=== PATIENT | female | born 1985 | race Caucasian/White ===

== ENCOUNTER 2016-08-28 16:59 | Emergency (ER) | payer SELFPAY ==
--- NOTE | 2016-08-28 18:15 | NUR ---
PATIENT LEFT WITHOUT BEING SEEN BY DR. COTA. NO FURTHER CARE PROVIDED FOR PATIENT.
== END 2016-08-28 18:15 | disposition left against medical advice (07) ==
LOC: MED 16:59
DX: M54.5 Low back pain (principal); Z53.21 Procedure and treatment not carried out due to patient leaving prior to being seen by health care provider

== ENCOUNTER 2016-08-28 18:37 | Emergency (ER) | payer MEDICAID ==
[~2016-08-28] VITALS: Ht 170.2 cm; Wt 103.9 kg
[2016-08-28 19:21] VITALS: BP 125/76
--- NOTE | 2016-08-28 20:37 | NUR ---
TO ER BED 5
[2016-08-28] MEDS ORDERED: KETOROLAC 60 MG/2 ML VIAL IM ONE (20:50)
--- NOTE | 2016-08-28 20:51 | NUR ---
31 Y/O F W/C/O LOWER BACK PAIN X 1 WK. DENIES ANY INJURIES TO BACK. NO MED HX. PT DENIES ANY N/V/D,SOB,CP AT THE MOMENT. PT STATES SHE WAS WALKING UP THE STAIRS AND HEARD HER BACK SHIFT. PT DENIES ANY FALL OR TRAUMA TO THE AREA.
--- NOTE | 2016-08-28 21:00 | NUR ---
PT LEFT FOR XRAY.
--- NOTE | 2016-08-28 21:07 | NUR ---
PT RETURN TO ER FROM XRAY
[2016-08-28 21:44] VITALS: BP 122/72
--- NOTE | 2016-08-28 21:45 | NUR ---
Patient discharged with v/s stable. Written and verbal after care instructions given and explained. Patient alert, oriented and verbalized understanding of instructions. Ambulatory with steady gait. All questions addressed prior to discharge. ID band removed. Patient advised to follow up with PMD. Rx of TRAMADOL 50MG, FLEXERIL 5MG, MOTRIN 800MG given. Patient educated on indication of medication including possible reaction and side effects. Opportunity to ask questions provided and answered.
== END 2016-08-28 21:44 | disposition home or self-care (01) ==
LOC: MED 18:37
DX: M54.5 Low back pain (principal); R03.0 Elevated blood-pressure reading, without diagnosis of hypertension; Z88.0 Allergy status to penicillin
CPT/HCPCS: 72100; 81025; 96372; 99284; J1885

== ENCOUNTER 2018-03-08 11:56 | Emergency (ER) | payer MEDICAID ==
[~2018-03-08] VITALS: Ht 167.6 cm; Wt 103.0 kg
[2018-03-08 12:35] VITALS: BP 157/87
[2018-03-08] MEDS ORDERED: ALBUTEROL SULFATE/IPRATROPIU 3 ML SOL IH ONE ×3 (12:40→14:33)
--- NOTE | 2018-03-08 12:40 | NUR ---
PT AMBULATED TO ER BED 08
--- NOTE | 2018-03-08 12:47 | NUR ---
C/O FATIGUE SOB WITH HACKING COUGH, NASAL/CHEST CONGESTION X 2 WKS OVER THE COUNTER MEDICATIONS INEFFECTIVE PER PT--NYQUIL HX--ASTHMA RX---ALBUTEROL
[2018-03-08] MEDS ORDERED: ALBUTEROL SULFATE/IPRATROPIU 3 ML SOL IH STA (13:04)
--- NOTE | 2018-03-08 14:35 | NUR ---
DR. GALLEGOS ORDERED [facility]. BREATHING TREATMENT ADMINISTERED TO PATIENT. TOLERATED TREATMENT WELL, NO ADVERSE SIDE EFFECTS. NO RESPIRATORY DISTRESS NOTED AT THIS TIME. WILL CONTINUE TO MONITOR.
--- NOTE | 2018-03-08 14:40 | NUR ---
DR GALLEGOS EVALUATING AAO X 4 PT AT BEDSIDE
[2018-03-08] MEDS ORDERED: CLINDAMYCIN 600 MG/4 ML VIAL IM ONE (14:55)
[2018-03-08] MEDS ORDERED: DEXAMETHASONE 10 MG/ML VIAL IM ONE (14:55)
--- NOTE | 2018-03-08 16:11 | NUR ---
Patient discharged with v/s stable. Written and verbal after care instructions given and explained. Patient alert, oriented and verbalized understanding of instructions. Ambulatory with steady gait. All questions addressed prior to discharge. ID band removed. Patient advised to follow up with PMD. Rx of AZITHYROMYCIN/ALBUTEROL/PROMETHAZINE DM/PREDNISONE given. Patient educated on indication of medication including possible reaction and side effects. Opportunity to ask questions provided and answered.
[2018-03-08 16:12] VITALS: BP 134/88
== END 2018-03-08 16:11 | disposition home or self-care (01) ==
LOC: MED 11:56
DX: J45.901 Unspecified asthma with (acute) exacerbation (principal); Z88.0 Allergy status to penicillin
CPT/HCPCS: 71045; 94640; 96372; 99283; J1100; J3490; J7620; Q0092

== ENCOUNTER 2018-09-26 19:46 | Emergency (ER) | payer MEDICAID ==
[~2018-09-26] VITALS: Ht 167.6 cm; Wt 99.8 kg
[2018-09-26 19:52] VITALS: BP 127/82
--- NOTE | 2018-09-26 19:52 | NUR ---
TO BED # 04 AMBULATORY
--- NOTE | 2018-09-26 20:10 | NUR ---
ER-MD CAME BY BEDSIDE TO EVALUATE PT.
--- NOTE | 2018-09-26 20:10 | NUR ---
Dr. Sawant examining patient.
[2018-09-26] MEDS ORDERED: KETOROLAC 30 MG/ML VIAL IM ONE (20:15)
--- NOTE | 2018-09-26 20:27 | NUR ---
TORADOL 30 MG IM AND BENADRYL 25 MG PO GIVEN ORDERED.
[2018-09-26] MEDS ORDERED: NEOMYCIN/POLYMYXIN/BACITRACIN 0.9 GM/1 PKT TP ONE ×2 (20:40→20:51)
--- NOTE | 2018-09-26 20:40 | NUR ---
WOUND CLEANSED WITH NS, NEOSPORIN OINTMET APPLIED AND COVERED WITH STERILE 4X4'S.
--- NOTE | 2018-09-26 20:41 | NUR ---
DISCHARGED STABLE AND IMPROVED. PRESCRIPTION,VERBAL AND WRITTEN AFTERCARE INSTRUCTIONS GIVEN. VERBALIZED UNDERSTANDING.
[2018-09-26 20:45] VITALS: BP 127/82
== END 2018-09-26 20:41 | disposition home or self-care (01) ==
LOC: MED 19:46
DX: L02.415 Cutaneous abscess of right lower limb (principal); L40.9 Psoriasis, unspecified; Z88.0 Allergy status to penicillin
CPT/HCPCS: 96372; 99283; J1885; Q0163

== ENCOUNTER 2019-06-26 18:10 | Emergency (ER) | payer MEDICAID ==
[~2019-06-26] VITALS: Ht 167.6 cm; Wt 102.5 kg
[2019-06-26 18:19] VITALS: BP 161/99
--- NOTE | 2019-06-26 18:27 | NUR ---
PT C/O BUG BITES ON WRIST BILATERAL WITH BURNING AND TINGLING SENSATION RADIATING TO BOTH UPPER ARM WHILING DOING HOUSE WORK TWO HOURS AGO. PT ALSO C/O OF SOB FOR 20 MINUTES. PATIENT STATES PAIN OF 7/10 AT THIS TIME; A SMALL AREA WITH SLIGHT ERYTHEMA W/O LUMP ON THE LEFT ANTERIOR WRIST NOTICED. PT IS TACHYCARDIAC, TACHYPNEIC, AND HYPERTENSIVE UPON ASSESSMENT. PATIENT POSITIONED FOR COMFORT AND ON MONITOR; HOB ELEVATED; BEDRAILS UP X1; BED DOWN. ER MADE AWARE OF PT STATUS. Addendum: 06/26/19 at 1900 by [facility] SUNBURN ON LEFT LATERAL UPPER ARM NOTICED.
[2019-06-26] MEDS ORDERED: NACL 0.9% 1,000 ML IV ONE (18:40)
--- NOTE | 2019-06-26 19:00 | NUR ---
PT STATES SHE DRANK ONE CUP OF VALKA AROUND 2 HOURS AGO BEFORE THE BUG BITE. AND SHE ALMOST FAINTED AT THE TIME.
--- NOTE | 2019-06-26 19:11 | NUR ---
REPORT GAVE TO AURA FERNANDEZ.
--- NOTE | 2019-06-26 19:12 | NUR ---
RECEIVED REPORT FROM AURA DIAZ. ASSUMED CARE OF PT AT THIS TIME.
--- NOTE | 2019-06-26 19:55 | NUR ---
PT LAYING IN BED. HR AT 106. PT WITH NO C/O PAIN. VISIBLE CHEST RISE AND FALL NOTED. WILL CONTINUE TO MONITOR.
[2019-06-26 20:07] VITALS: BP 126/91
== END 2019-06-26 20:11 | disposition home or self-care (01) ==
LOC: MED 18:10
DX: S60.862A Insect bite (nonvenomous) of left wrist, initial encounter (principal); W57.XXXA Bitten or stung by nonvenomous insect and other nonvenomous arthropods, initial encounter; Z88.0 Allergy status to penicillin; Y93.89 Activity, other specified; Y92.89 Other specified places as the place of occurrence of the external cause; Y99.8 Other external cause status
CPT/HCPCS: 99282; J7030

== ENCOUNTER 2019-07-28 17:43 | Emergency (ER) | payer MEDICAID ==
[~2019-07-28] VITALS: Ht 167.6 cm; Wt 107.0 kg
[2019-07-28 17:58] VITALS: BP 158/115
--- NOTE | 2019-07-28 18:03 | NUR ---
AMBULATED TO BED 5
--- NOTE | 2019-07-28 18:07 | NUR ---
34/F C/O MID LUMBAR BACK PAIN AFTER LIFTING BOXES 2 DAYS AGO. STATES LOW BACK STRAIN FROM LIFTING. DENIES BOWEL/BLADDER INCONTINENCE, N/V, F/C STATES TRIED HEATING PAD AND TYLENOL TO NO RELIEF. HAS PAIN WITH ANY MOVEMENT MEDHX: DENIES
[2019-07-28 18:25] VITALS: BP 116/72
[2019-07-28] MEDS ORDERED: KETOROLAC 60 MG/2 ML VIAL IM ONE (19:10)
--- NOTE | 2019-07-28 19:16 | NUR ---
REPORT TO AURA GONZALEZ. TRANSFER OF CARE AT THIS TIME.
--- NOTE | 2019-07-28 20:28 | NUR ---
Patient discharged with v/s stable. Written and verbal after care instructions given and explained. Patient alert, oriented and verbalized understanding of instructions. Ambulatory with steady gait. All questions addressed prior to discharge. ID band removed. Patient advised to follow up with PMD. Rx of NORCO, CIPRO, MOTRIN given. Patient educated on indication of medication including possible reaction and side effects. Opportunity to ask questions provided and answered.
== END 2019-07-28 20:28 | disposition home or self-care (01) ==
LOC: MED 17:43
DX: N39.0 Urinary tract infection, site not specified (principal); F17.210 Nicotine dependence, cigarettes, uncomplicated; M54.5 Low back pain; Z88.0 Allergy status to penicillin; Z88.1 Allergy status to other antibiotic agents
CPT/HCPCS: 81002; 81025; 96372; 99283; J1885

== ENCOUNTER 2020-09-15 05:39 | Emergency (ER) | payer SELFPAY ==
[~2020-09-15] VITALS: Ht 167.6 cm; Wt 125.2 kg
[2020-09-15 05:42] VITALS: BP 138/84
--- NOTE | 2020-09-15 05:48 | NUR ---
PT TAKEN TO BED 9
--- NOTE | 2020-09-15 05:50 | NUR ---
PT. IS A 35 Y/O FEMALE THAT CAME INTO ED WITH C/O OF MEDICATION REFILL OF ALBUTEROL. PT. STATES "I'M GOOD, I JUST NEED A MEDICATION REFILL OF MY INHALER." PT. DENIES ANY PAIN AT THIS TIME. DENIES SOB. AAOX4. VSS. DENIES N/V/D; SKIN IS PINK/WARM/DRY; AAOX4 WITH EVEN AND STEADY GAIT; HR EVEN AND REGULAR; PT DENIES ANY FEVER, CP, SOB, OR COUGH AT THIS TIME; VSS; PATIENT POSITIONED FOR COMFORT; HOB ELEVATED; BEDRAILS UP X1; BED DOWN. ER MD MADE AWARE OF PT STATUS. PMH: ASTHMA ALLERGIES: PENICILLINS, AMOXICILLIN
--- NOTE | 2020-09-15 06:13 | NUR ---
PT. SITTING ON BED WITH PHONE IN HAND, VOICES NO COMPLAINTS AT THIS TIME.
[2020-09-15] MEDS ORDERED: ALBU0.0912 INH ×2 (06:27→06:51)
--- NOTE | 2020-09-15 06:30 | NUR ---
NO NURSING INTERVENTIONS NEEDED
[2020-09-15 06:52] VITALS: BP 138/84
--- NOTE | 2020-09-15 06:52 | NUR ---
Patient discharged with v/s stable. Written and verbal after care instructions given and explained. Patient alert, oriented and verbalized understanding of instructions. Ambulatory with steady gait. All questions addressed prior to discharge. ID band removed. Patient advised to follow up with PMD. Rx of ALBUTEROL SULFATE given. Patient educated on indication of medication including possible reaction and side effects. Opportunity to ask questions provided and answered.
== END 2020-09-15 06:52 | disposition home or self-care (01) ==
LOC: MED 05:39
DX: J45.909 Unspecified asthma, uncomplicated (principal); Z76.0 Encounter for issue of repeat prescription; Z88.0 Allergy status to penicillin; Z88.1 Allergy status to other antibiotic agents
CPT/HCPCS: 99281

== ENCOUNTER 2020-10-15 10:42 | Emergency (ER) | payer MEDICAID ==
[~2020-10-15] VITALS: Ht 167.6 cm; Wt 122.5 kg
[~2020-10-15 10:42] MED LIST: ALBU0.0912 INH
[2020-10-15 10:51] VITALS: BP 129/84
--- NOTE | 2020-10-15 11:00 | NUR ---
35/F presents to ED for a refill on her albuterol inhaler. Pt states we sent her prescription to a pharmacy that is closed and she is c/o having trouble breathing. Pt does not appear to be in any respiratory distress. Pt offered a breathing tx and pt refused and said she only wanted her inhaler prescription.
[2020-10-15] MEDS ORDERED: ALBU0.0912 INH (11:20)
--- NOTE | 2020-10-15 11:27 | NUR ---
Patient discharged with v/s stable. Written and verbal after care instructions given and explained. Patient alert, oriented and verbalized understanding of instructions. Ambulatory with steady gait. All questions addressed prior to discharge. ID band removed. Patient advised to follow up with PMD. Rx of Albuterol Sulfate inhaler given. Patient educated on indication of medication including possible reaction and side effects. Opportunity to ask questions provided and answered.
== END 2020-10-15 11:27 | disposition home or self-care (01) ==
LOC: MED 10:42
DX: Z76.0 Encounter for issue of repeat prescription (principal); J45.909 Unspecified asthma, uncomplicated; Z88.0 Allergy status to penicillin; Z88.1 Allergy status to other antibiotic agents; Z79.899 Other long term (current) drug therapy
CPT/HCPCS: 99281

== ENCOUNTER 2020-10-28 09:44 | Emergency (ER) | payer MEDICAID ==
[~2020-10-28] VITALS: Ht 170.2 cm; Wt 122.5 kg
[2020-10-28 10:13] VITALS: BP 136/102
--- NOTE | 2020-10-28 10:16 | NUR ---
PT SENT TO LOBBY TO WAIT FOR AVAILABLE BED OR MSE.
[2020-10-28] MEDS ORDERED: KETOROLAC 30 MG/ML VIAL IM ONE (11:00)
[2020-10-28] MEDS ORDERED: HYDROcodone/APAP 5/325 MG 1 TAB TAB PO ONE (11:00)
[2020-10-28] MEDS ORDERED: METH-1681 PO (11:07)
[2020-10-28] MEDS ORDERED: NAPR-54 PO (11:07)
[2020-10-28 11:50] VITALS: BP 136/102
--- NOTE | 2020-10-28 12:09 | NUR ---
Patient discharged with v/s stable. Written and verbal after care instructions given and explained. Patient alert, oriented and verbalized understanding of instructions. Ambulatory with steady gait. All questions addressed prior to discharge. ID band removed. Patient advised to follow up with PMD. Rx of METHOCARBAMOL, NAPROXEN given. Patient educated on indication of medication including possible reaction and side effects. Opportunity to ask questions provided and answered.
== END 2020-10-28 12:09 | disposition home or self-care (01) ==
LOC: MED 09:44
DX: S39.012A Strain of muscle, fascia and tendon of lower back, initial encounter (principal); X58.XXXA Exposure to other specified factors, initial encounter; Y93.89 Activity, other specified; Y92.89 Other specified places as the place of occurrence of the external cause; Y99.8 Other external cause status
CPT/HCPCS: 96372; 99283; J1885

== ENCOUNTER 2021-11-10 09:31 | Emergency (ER) | payer MEDICAID ==
[~2021-11-10] VITALS: Ht 167.6 cm; Wt 136.1 kg
[~2021-11-10 09:31] MED LIST changes: +METH-1681 PO; +NAPR-54 PO
[2021-11-10 09:35] VITALS: BP 93/57
--- NOTE | 2021-11-10 09:44 | NUR ---
PT AMB TO BED 5.
--- NOTE | 2021-11-10 10:43 | NUR ---
l wrist shanna wrap x 1 + cms
[2021-11-10 10:48] VITALS: BP 105/67
--- NOTE | 2021-11-10 10:51 | NUR ---
PT DISCHARGED HOME, Patient discharged with v/s stable. Written and verbal after care instructions given and explained to parent/guardian. Ambulatorysteady gait. All questions addressed prior to discharge. Advised to follow up with PMD IN 3-4 DAYS, GRECIA BANDAGE IN PLACE, N/C INTACT
== END 2021-11-10 10:48 | disposition home or self-care (01) ==
LOC: MED 09:31
DX: S00.83XA Contusion of other part of head, initial encounter (principal); S69.92XA Unspecified injury of left wrist, hand and finger(s), initial encounter; J45.909 Unspecified asthma, uncomplicated; Z79.899 Other long term (current) drug therapy; Z79.1 Long term (current) use of non-steroidal anti-inflammatories (NSAID); Z88.0 Allergy status to penicillin; X58.XXXA Exposure to other specified factors, initial encounter; Y92.89 Other specified places as the place of occurrence of the external cause; Y93.89 Activity, other specified; Y99.8 Other external cause status
CPT/HCPCS: 73110; 99283

== ENCOUNTER 2022-04-16 10:48 | Emergency (ER) | payer MEDICAID ==
[~2022-04-16] VITALS: Ht 167.6 cm; Wt 133.4 kg
[2022-04-16 11:13] VITALS: BP 182/77
--- NOTE | 2022-04-16 11:24 | NUR ---
ASSUMED PATIENT CARE, NURSING ASSESSMENT COMPLETED.
[2022-04-16] MEDS ORDERED: ALBUTEROL 0.083% 2.5 MG/3 ML NEBU INH ONE ×2 (12:25→13:55)
[2022-04-16] MEDS ORDERED: IPRATROPIUM 0.02% 0.5 MG/2.5 ML NEBU INH ONE (12:25)
--- NOTE | 2022-04-16 13:25 | NUR ---
[facility] TREATMENT ONGOING.
[2022-04-16] MEDS ORDERED: KETOROLAC 30 MG/ML VIAL IM ONE (14:40)
[2022-04-16] MEDS ORDERED: methylPREDNISolone SS 125 MG in WATER STERILE 2 ML IM ONE (15:20)
[2022-04-16] MEDS ORDERED: LEVO750T75 PO (15:35)
[2022-04-16] MEDS ORDERED: PRED20TA5 PO (15:35)
[2022-04-16] MEDS ORDERED: IBUP-2213 PO (15:35)
[2022-04-16] MEDS ORDERED: methylPREDNISolone SS 125 MG/2 ML VIAL ONE (16:20)
[2022-04-16] MEDS ORDERED: KETOROLAC 30 MG/ML VIAL ONE (16:20)
[2022-04-16 16:41] VITALS: BP 131/81
--- NOTE | 2022-04-16 16:41 | NUR ---
Patient discharged with v/s stable. Written and verbal after care instructions ABOUT COMMUNITY-ACQU[employer] PNA given and explained. Patient alert, oriented and verbalized understanding of instructions. Ambulatory with steady gait. All questions addressed prior to discharge. ID band removed. Patient advised to follow up with PMD. Rx of IBUPROFEN, LEVOFLOXACIN, DELTASONE given. Patient educated on indication of medication including possible reaction and side effects. Opportunity to ask questions provided and answered.
== END 2022-04-16 16:41 | disposition home or self-care (01) ==
LOC: MED 10:48
DX: J18.9 Pneumonia, unspecified organism (principal); Z20.822 Contact with and (suspected) exposure to COVID-19; J45.909 Unspecified asthma, uncomplicated; Z88.0 Allergy status to penicillin; Z88.1 Allergy status to other antibiotic agents; Z79.899 Other long term (current) drug therapy
CPT/HCPCS: 71045; 81025; 87426; 87804; 93005; 94640; 96372; 99285; J1885; J2930; J7613; J7644; Q0092

== ENCOUNTER 2022-12-03 07:27 | Emergency (ER) | payer MEDICAID ==
[~2022-12-03] VITALS: Ht 167.6 cm; Wt 131.5 kg
[~2022-12-03 07:27] MED LIST changes: +IBUP-2213 PO; +LEVO750T75 PO; +PRED20TA5 PO
[2022-12-03 07:37] VITALS: BP 138/99; PULSE 74; RESP 18; TEMP 97.6; O2SAT 97
[2022-12-03] MEDS ORDERED: ACETAMINOPHEN EXTRA STRENGTH 500 MG TAB PO ONE (07:55)
[2022-12-03] MEDS ORDERED: ACET-10509 PO (09:22)
== END 2022-12-03 09:29 | disposition home or self-care (01) ==
LOC: MED 07:27
DX: S93.491A Sprain of other ligament of right ankle, initial encounter (principal); M25.561 Pain in right knee; J45.909 Unspecified asthma, uncomplicated; Z88.0 Allergy status to penicillin; Z88.1 Allergy status to other antibiotic agents; Z79.899 Other long term (current) drug therapy; X58.XXXA Exposure to other specified factors, initial encounter; Y93.89 Activity, other specified; Y92.89 Other specified places as the place of occurrence of the external cause; Y99.8 Other external cause status
CPT/HCPCS: 73562; 73610; 99284

== ENCOUNTER 2022-12-16 01:35 | Emergency (ER) | payer MEDICAID ==
[~2022-12-16] VITALS: Ht 167.6 cm; Wt 134.3 kg
[~2022-12-16 01:35] MED LIST changes: +ACET-10509 PO
[2022-12-16 01:45] VITALS: BP 136/90; PULSE 109; RESP 28; TEMP 97; O2SAT 96
[2022-12-16] MEDS ORDERED: predniSONE 20 MG TAB PO ONE (01:45)
[2022-12-16] MEDS ORDERED: ALBUTEROL SULFATE/IPRATROPIU 3 ML SOL IH ONE (01:45)
[2022-12-16 01:51] VITALS: PULSE 101; RESP 18; O2SAT 99
[2022-12-16] MEDS ORDERED: LIDOCAINE MPF 1% 10 ML ONE (01:53)
[2022-12-16] MEDS ORDERED: ALBUTEROL 0.083% 2.5 MG/3 ML NEBU INH ONE (02:40)
[2022-12-16 02:46] VITALS: PULSE 85; RESP 18; O2SAT 100
[2022-12-16] MEDS ORDERED: FLUT1DSK2 IH (02:59)
[2022-12-16] MEDS ORDERED: PRED20TA5 PO (02:59)
[2022-12-16] MEDS ORDERED: ALBU0.0912 INH (02:59)
[2022-12-16 03:05] VITALS: BP 132/74; PULSE 80; RESP 18; TEMP 97; O2SAT 99
[2022-12-16] MEDS ORDERED: PRON INH (03:08)
[2022-12-16] MEDS ORDERED: [UNRECOGNIZED DRUG - CODE] MC (03:08)
== END 2022-12-16 03:05 | disposition home or self-care (01) ==
LOC: MED 01:35
DX: J45.901 Unspecified asthma with (acute) exacerbation (principal); Z88.0 Allergy status to penicillin; Z88.1 Allergy status to other antibiotic agents; Z79.899 Other long term (current) drug therapy
CPT/HCPCS: 94640; 99283; J2001; J7512; J7613

== ENCOUNTER 2023-06-24 09:23 | Emergency (ER) | payer MEDICAID, OTHER ==
[~2023-06-24] VITALS: Ht 167.6 cm; Wt 95.3 kg
[~2023-06-24 09:23] MED LIST changes: +FLUT1DSK2 IH; +NAPR-337 PO; -NAPR-54 PO; +PRON INH; +[UNRECOGNIZED DRUG - CODE] MC
[2023-06-24 09:34] VITALS: BP 138/109; PULSE 77; RESP 20; TEMP 98.1; O2SAT 96
[2023-06-24] MEDS ORDERED: ALBU0.0912 INH (10:27)
[2023-06-24] MEDS ORDERED: CLIN-223 PO (10:27)
[2023-06-24] MEDS ORDERED: PRON INH (10:27)
[2023-06-24] MEDS ORDERED: GUAI237L61 PO (10:39)
[2023-06-24] MEDS: DEXAMETHASONE 10 MG/ML VIAL IM ONE (10:45)
[2023-06-24] MEDS: KETOROLAC 30 MG/ML VIAL IM ONE (10:46)
[2023-06-24 11:00] VITALS: BP 125/88; PULSE 78; RESP 16; TEMP 98; O2SAT 99
[2023-06-24 11:16] LABS: FLU A ANTIGEN negative (NEGATIVE); FLU B ANTIGEN negative (NEGATIVE)
== END 2023-06-24 11:00 | disposition home or self-care (01) ==
LOC: MED 09:23
DX: J06.9 Acute upper respiratory infection, unspecified (principal); J02.9 Acute pharyngitis, unspecified; R03.0 Elevated blood-pressure reading, without diagnosis of hypertension; Z20.822 Contact with and (suspected) exposure to COVID-19; J45.909 Unspecified asthma, uncomplicated; Z79.1 Long term (current) use of non-steroidal anti-inflammatories (NSAID); Z79.2 Long term (current) use of antibiotics; Z79.899 Other long term (current) drug therapy; Z88.0 Allergy status to penicillin; Z88.1 Allergy status to other antibiotic agents
CPT/HCPCS: 81025; 87081; 87426; 87804; 96372; 99284; J1100; J1885